=== PATIENT | male | born 1950 | race Caucasian/White ===

== ENCOUNTER 2021-10-02 13:19 | Outpatient (CLI) | payer OTHER | END 2021-10-02 13:21 | disposition home or self-care (01) | LOC: NUCLEAR 13:19 | PROVIDERS: ATTEND Orthopaedic Surgery | DX: M85.89 Other specified disorders of bone density and structure, multiple sites (principal); M54.16 Radiculopathy, lumbar region; M48.061 Spinal stenosis, lumbar region without neurogenic claudication ==

== ENCOUNTER 2021-10-02 13:46 | Outpatient (CLI) | payer OTHER | END 2021-10-02 13:57 | disposition home or self-care (01) | LOC: TOM 13:46 | PROVIDERS: ATTEND Orthopaedic Surgery | DX: M54.16 Radiculopathy, lumbar region (principal); M48.061 Spinal stenosis, lumbar region without neurogenic claudication ==

== ENCOUNTER 2021-12-29 13:00 | Outpatient (CLI) | payer OTHER | END 2021-12-29 13:12 | disposition home or self-care (01) | LOC: MRI 13:00 | PROVIDERS: ATTEND Orthopaedic Surgery | DX: M54.16 Radiculopathy, lumbar region (principal); M48.061 Spinal stenosis, lumbar region without neurogenic claudication | CPT/HCPCS: 72148 ==

== ENCOUNTER 2023-10-31 07:09 | Outpatient (CLI) | payer OTHER | END 2023-10-31 07:10 | disposition home or self-care (01) | LOC: NUCLEAR 07:09 | PROVIDERS: ATTEND Specialist | DX: I11.9 Hypertensive heart disease without heart failure (principal) | CPT/HCPCS: 78452; 93017; A9500; J0153 ==

== ENCOUNTER 2023-10-31 08:50 | Outpatient (CLI) | payer OTHER | END 2023-10-31 08:53 | disposition home or self-care (01) | LOC: RAD 08:50 | PROVIDERS: ATTEND Specialist | DX: E11.9 Type 2 diabetes mellitus without complications (principal); I11.9 Hypertensive heart disease without heart failure ==

== ENCOUNTER 2023-12-09 12:06 | Outpatient (CLI) | payer OTHER | END 2023-12-09 12:36 | disposition home or self-care (01) | LOC: MRI 12:06 | PROVIDERS: ATTEND Orthopaedic Surgery | DX: M48.061 Spinal stenosis, lumbar region without neurogenic claudication (principal); M54.16 Radiculopathy, lumbar region | CPT/HCPCS: 72148 ==